=== PATIENT | female | born 1965 ===

== ENCOUNTER 2018-06-08 10:12 | Outpatient (CLI) | payer OTHER ==
[~2018-06-08] VITALS: Ht 152.4 cm; Wt 95.3 kg
== END 2018-06-08 10:30 | disposition home or self-care (01) ==
LOC: OFIC 805 10:12
DX: K21.9 Gastro-esophageal reflux disease without esophagitis (principal); J31.2 Chronic pharyngitis; H92.02 Otalgia, left ear